=== PATIENT | female | born 1970 | race Caucasian/White ===

== ENCOUNTER 2016-09-25 09:27 | Emergency (ER) | payer OTHER ==
[2016-09-25 09:06] LABS: BASOPHILS 0.3 %; BASOPHILS ABSOLUTE 0.02 10/3/uL (0.0-0.16); EOSINOPHILS 1.2 %; EOSINOPHILS ABSOLUTE 0.09 10/3/uL (0.0-0.53); IMMATURE GRANULOCYTES 0.1 %; IMMATURE GRANULOCYTES ABSOLUTE 0.01 10/3/uL (0.0-0.11); LYMPHOCYTES 19.3 %; LYMPHOCYTES ABSOLUTE 1.41 10/3/uL (0.67-4.30); MEAN CORPUS HGB CONC 34.6 g/dL (32.0-36.0); MEAN CORPUSCULAR HEMOGLOB 29.2 pg (26.0-34.0); MEAN CORPUSCULAR VOLUME 84.3 fL (80-100); MEAN PLATELET VOLUME 10.4 fL (9.2-13.0); MONOCYTES 4.2 %; MONOCYTES ABSOLUTE 0.31 10/3/uL (0.21-1.20); NEUTROPHILS 74.9 %; NEUTROPHILS ABSOLUTE 5.47 10/3/uL (2.02-8.40); PLATELET COUNT 136 10/3/uL (150-400); RBC DISTRIBUTION WIDTH 13.6 % (12.0-16.0)
[2016-09-25 09:07] LABS: ER CBC TAT 0 Hrs 12 Mins; HEMATOCRIT 43.9 % (36.0-48.0); HEMOGLOBIN 15.2 g/dL (12.0-16.0); MANUAL DIFF NO %; RED CELL COUNT 5.21 10/6/uL (4.0-5.6); WHITE BLOOD CELLS 7.3 10/3/uL (4.5-10.5)
[2016-09-25 09:10] LABS: INTERNATIONAL NORMAL RATI 1.1 UNITS (-); PARTIAL THROMBO TIME 29.5 SEC (22.5-37.2)
[2016-09-25 09:20] LABS: BUN (BLOOD UREA NITROGEN) 14 MG/DL (6-23); CHEST PAIN PROFILE TAT 0 Hrs 25 Mins; CHLORIDE, SERUM 108 MMOL/L (96-112); CREATININE 0.84 MG/DL (0.55-1.02); GFR AFRICAN AMERICAN 97 ML/MIN (>=60); GFR NON AFRICAN AMERICAN 83 ML/MIN (>=60); POTASSIUM, SERUM 4.3 MMOL/L (3.5-5.3); SODIUM, SERUM 141 MMOL/L (135-148); TROPONIN I <0.02 NG/ML (<0.05)
[2016-09-25 09:21] LABS: CO2 (CARBON DIOXIDE) 21 MMOL/L (24-34); GLUCOSE, SERUM 154 MG/DL (60-99)
[~2016-09-25 09:27] MED LIST: ASAB PO; COREG6 PO; DIABETA5 PO; EFFIENT10 PO; ERYTHROCIN250 MG PO; FISH OIL PO; FISH-EPA1000 MG PO; GLUCOPHAGE1000 MG PO; GLUCPH PO; HYDROCODONE PO; IMDUR30 PO; KLONO1 PO; L40 PO; LANTUS SC; LOP100 PO; LOPID6 PO; LOTREL1 CA3 PO; NEUR300 PO; NEUR600 PO; NEXIUM40 PO; NITROSTAT0.4 MG SL; PR25 PO; PRIN10 PO; RAN500 PO; REG PO; ROXICODONE15 MG PO; ROXICODONE30 MG PO; SPIRO50 PO; ZANTAC300 MG PO; ZOCOR40 PO; ZOCOR80 MG PO
== END 2016-09-25 20:20 | disposition home or self-care (01) ==
LOC: ER 09:27
PROVIDERS: Physician Assistant
DX: R07.9 Chest pain, unspecified (principal); F17.200 Nicotine dependence, unspecified, uncomplicated; I25.2 Old myocardial infarction; I10 Essential (primary) hypertension; Z95.5 Presence of coronary angioplasty implant and graft; Z79.82 Long term (current) use of aspirin; Z79.84 Long term (current) use of oral hypoglycemic drugs; Z79.899 Other long term (current) drug therapy
CPT/HCPCS: 71010; 80048; 83735; 83880; 84484; 85025; 85610; 85730; 93005; 96374; 96375; 99285; J1170; J2405